=== PATIENT | male | born 1955 | race Caucasian/White ===

== ENCOUNTER 2016-03-07 08:47 | Day surgery (SDC) | payer OTHER ==
[2016-03-02 08:56] VITALS: BMI 23.6
[2016-03-07] MEDS ORDERED: PROPOFOL 20 ML ONE ×2 (09:06)
[2016-03-07 09:22] VITALS: TEMP 97.8
[2016-03-07 11:01] VITALS: BP 110/65; PULSE 75
== END 2016-03-07 11:03 | disposition home or self-care (01) ==
LOC: FASU-ENDO 08:47
PROVIDERS: ATTEND Internal Medicine Gastroenterology
PROC: 0DJD8ZZ Inspection of Lower Intestinal Tract, Via Natural or Artificial Opening Endoscopic (ICD-10-PCS; principal; 2016-03-07 09:55)
DX: Z12.11 Encounter for screening for malignant neoplasm of colon (principal)